=== PATIENT | female | born 1990 | race Caucasian/White ===

== ENCOUNTER 2020-02-18 08:37 | Day surgery (SDC) | payer OTHER ==
--- NOTE | 2020-02-15 08:44 | NUR ---
LABS SENT OVER TO [facility] FOR REVIEW. [facility] IS INFORMED OF DATE LABS ARE DRAWN. LABS DRAWN ON THE 02-09-20 ARE OKAY FOR SURGERY 02-18-[address] Jose G CAGLE.
[~2020-02-18] VITALS: Ht 160 cm; Wt 84.4 kg
[2020-02-18 08:53] VITALS: BP 132/67
[2020-02-18 16:09] VITALS: BP 136/73
== END 2020-02-18 14:55 | disposition home or self-care (01) ==
LOC: DS 08:37 → OR 10:30 → DS 14:55
PROVIDERS: ATTEND Surgery
DX: L05.91 Pilonidal cyst without abscess (principal); Z11.59 Encounter for screening for other viral diseases; E66.3 Overweight; Z68.33 Body mass index [BMI] 33.0-33.9, adult
CPT/HCPCS: J0690; J2405; J3010; J3490; U0003-CS

== ENCOUNTER 2020-05-05 12:36 | Emergency (ER) | payer OTHER ==
[~2020-05-05] VITALS: Ht 160 cm; Wt 85.7 kg
[2020-05-05 13:06] VITALS: BP 134/78; Ht 160 cm; Wt 85.7 kg
[2020-05-05 14:34] LABS: BASOPHIL % 1.3 % (0-2); PLATELET COUNT 315 x10^3mcL (130-400); RED CELL DISTRIBUTION WIDTH 13.8 % (11.5-14.5)
== END 2020-05-05 14:50 | disposition home or self-care (01) ==
LOC: ED 12:36
PROVIDERS: Emergency Medicine
DX: S70.361A Insect bite (nonvenomous), right thigh, initial encounter (principal); W57.XXXA Bitten or stung by nonvenomous insect and other nonvenomous arthropods, initial encounter; Y93.89 Activity, other specified; Y92.89 Other specified places as the place of occurrence of the external cause; Y99.8 Other external cause status